=== PATIENT | female | born 1985 | race Caucasian/White ===

== ENCOUNTER 2017-10-07 14:34 | Emergency (ER) | payer MEDICAID ==
[2017-10-07 14:56] VITALS: BP 113/58
[2017-10-07] MEDS ORDERED: BUFFERED LIDOCAINE 10 ML SYRINGE SUBQ STA (15:01)
--- NOTE | 2017-10-07 15:03 | ED Physician Documentation ---
PD HPI UPPER EXT INJURY - Stated complaint Stated Complaint: LEFT FINGER SWELLING-SHOOTING PX INTO ARM - Chief complaint Chief Complaint: Ext Problem - History obtained from History obtained from: Patient - History of Present Illness Location: Other ( woman with 3 days of increasing pain emanating from the right middle finger and now radiating up the arm. No fevers.) Review of Systems Constitutional: denies: Fever, Chills GI: reports: Reviewed and negative Skin: reports: Reviewed and negative PD PAST MEDICAL HISTORY - Past Medical History Past Medical History: No - Present Medications Home Medications: Ambulatory Orders Medication Instructions Recorded Confirmed Albuterol Sulfate [Proair Hfa 1 - 2 puffs IN Q4H PRN 10/07/17 10/07/17 Inhaler] Amox/Clav 875/125 [Augmentin] 1 each PO Q12H #14 tablet 10/07/17 - Allergies Allergies/Adverse Reactions: Allergies Allergy/AdvReac Type Severity Reaction Status Date / Time No Known Drug Allergies Allergy Verified 10/07/17 14:56 PD ED PE NORMAL - Vitals Vital signs reviewed: Yes - General General: Alert and oriented X 3, No acute distress - Extremities Extremities: Other (On the radial side of the nail of the left third finger there is a small paronychia with tenderness of that digit, some swelling but she is able to extend it all the way and there is no tenderness over the flexor tendon sheath in the palm.) - Neuro Neuro: Alert and oriented X 3, Normal speech - Psych Psych: Normal mood, Normal affect Results - Vitals Vitals: Vital Signs - 24 hr 10/07/17 14:54 Temperature 36.5 C Heart Rate 78 Respiratory 16 Rate Blood Pressure 113/58 L O2 Saturation 98 Oxygen O2 Source Room air Procedures - General procedure General procedure: After a digital block with buffered lidocaine the paronychia was prepped with iodine and incised, purulent drainage was returned and a dressing was placed. Departure - Departure Disposition: Home, Self Care Clinical Impression: Paronychia of finger of left hand Condition: Good Record reviewed to determine appropriate education?: Yes Instructions: ED Fingernail Infec Prescriptions: Amox/Clav 875/125 [Augmentin] 1 each PO Q12H #14 tablet Comments: Call your doctor to arrange a follow-up appointment, make the next available appointment. In the interim, return anytime if worse or if new symptoms develop.
== END 2017-10-07 15:30 | disposition home or self-care (01) ==
LOC: ED 14:34
DX: O98.819 Other maternal infectious and parasitic diseases complicating pregnancy, unspecified trimester (principal); L03.012 Cellulitis of left finger
CPT/HCPCS: 10060; 99283

== ENCOUNTER 2022-12-04 21:06 | Emergency (ER) | payer MEDICAID, OTHER ==
[2022-12-04 21:36] LABS: BASOPHILS # (AUTO) 0.1 10^3/uL (0.0-0.1); BASOPHILS % (AUTO) 0.7 %; EOSINOPHILS # (AUTO) 0.3 10^3/uL (0.0-0.7); EOSINOPHILS % (AUTO) 3.6 %; HCT - HEMATOCRIT 43.2 % (37.0-47.0); HGB - HEMOGLOBIN 14.1 g/dL (12.0-16.0); LYMPHOCYTES # (AUTO) 2.5 10^3/uL (1.5-3.5); LYMPHOCYTES % (AUTO) 28.7 %; MEAN CORPUSCULAR HEMOGLOBIN 30.7 pg (27.0-31.0); MEAN CORPUSCULAR HGB CONC 32.6 g/dL (32.0-36.0); MEAN CORPUSCULAR VOLUME 93.9 fL (81.0-99.0); MEAN PLATELET VOLUME 10.2 fL (7.9-10.8); MONOCYTES # (AUTO) 0.7 10^3/uL (0.0-1.0); MONOCYTES % (AUTO) 7.6 %; NEUTROPHILS % (AUTO) 59.2 %; PLT - PLATELET COUNT 241 10^3/uL (130-450); RED CELL DISTRIBUTION WIDTH 11.9 % (12.0-15.0); WHITE BLOOD COUNT 8.5 x10^3/uL (4.8-10.8)
--- NOTE | 2022-12-04 21:41 | ED Physician Documentation ---
PD HPI CHEST PAIN - Stated complaint Stated Complaint: CHEST PX, HEADACHE - Chief complaint Chief Complaint: Cardiac - History obtained from History obtained from: Patient - Additional information Additional information: 37-year-old woman with history of anxiety, asthma presents with chest pain, intermittent over the past several months, worsening over the past 3 days, sharp, radiating to the left arm, associated with headache and dizziness. Patient also endorses acute anxiety during these episodes. Her mother reports that the patient lost the father of her children last year by suicide and she has been coping on her own while raising her kids Review of Systems Constitutional: denies: Fever Cardiac: reports: Chest pain / pressure. denies: Palpitations Respiratory: denies: Dyspnea, Cough PD PAST MEDICAL HISTORY - Present Medications Home Medications: Ambulatory Orders Medication Instructions Recorded Confirmed Albuterol Sulfate [Proair Hfa 1 - 2 puffs IN Q4H PRN 10/07/17 12/04/22 Inhaler] - Allergies Allergies/Adverse Reactions: Allergies Allergy/AdvReac Type Severity Reaction Status Date / Time No Known Drug Allergies Allergy Verified 12/04/22 21:11 PD ED PE NORMAL - Vitals Vital signs reviewed: Yes - General General: Alert and oriented X 3, No acute distress, Well developed/nourished, Other (anxious appearing) - HEENT HEENT: Atraumatic, PERRL, EOMI - Neck Neck: Supple, no meningeal sign - Cardiac Cardiac: RRR - Respiratory Respiratory: No respiratory distress, Clear bilaterally - Abdomen Abdomen: Non tender, Non distended - Derm Derm: Normal color, Warm and dry Results - Vitals Vitals: Vital Signs - 24 hr 12/04/22 12/04/22 21:11 21:57 Temperature 37.1 C Heart Rate 88 69 Respiratory 16 18 Rate Blood Pressure 108/73 102/69 O2 Saturation 100 99 Oxygen O2 Source Room air - Labs Labs: Laboratory Tests 12/04/22 12/04/22 12/04/22 21:30 21:30 21:30 WBC 8.5 RBC 4.60 Hgb 14.1 Hct 43.2 MCV 93.9 MCH 30.7 MCHC 32.6 RDW 11.9 L Plt Count 241 MPV 10.2 Neut # (Auto) 5.0 Lymph # (Auto) 2.5 Brown # (Auto) 0.7 Eos # (Auto) 0.3 Baso # (Auto) 0.1 Absolute Nucleated RBC 0.00 Nucleated RBC % 0.0 Sodium 136 Potassium 3.5 Chloride 96 L Carbon Dioxide 28 Anion Gap 12.0 BUN 16 Creatinine 0.7 Estimated GFR (MDRD) 95 Glucose 116 H Calcium 9.0 Total Bilirubin 0.5 AST 21 ALT 15 Alkaline Phosphatase 56 Troponin I High Sens < 2.3 L Total Protein 7.7 Albumin 4.0 Globulin 3.7 Albumin/Globulin Ratio 1.1 Lipase 39 PD Medical Decision Making - ED course ED course: 37-year-old woman with history of asthma presents with chest pain intermittent over the past several months, worsening recently. Her initial EKG is normal sinus rhythm without any concerning findings. Her vital signs and exam uncovered no emergent issues. Plan to obtain CBC, abdominal panel, troponin, and chest x-ray to evaluate for spontaneous pneumothorax, pneumonia, cardiac cause or other pathology. Assuming troponin is negative, patient will have a heart score of 0 and can be discharged safely to home. Plan to provide return precautions and have her follow-up with her primary care provider Departure - Departure Disposition: 01 , Self Care Clinical Impression: Chest pain, Anxiety Condition: Stable Instructions: ED Chest Pain Atypical Unkn Cause, Grief Moving Through, Grief Loss Self Help Comments: You were seen in the emergency department for evaluation of chest pain. Your exam, lab work, EKG, and chest x-ray uncovered no emergent cause for your symptoms. Please follow-up with your primary care provider and return to the emergency department for new or worsening symptoms or other concerns.
[2022-12-04 21:52] LABS: ALBUMIN/GLOBULIN RATIO 1.1 (1.0-2.2); BILIRUBIN,TOTAL 0.5 mg/dL (0.2-1.0); CREATININE 0.7 mg/dL (0.4-1.0); POTASSIUM 3.5 mmol/L (3.5-5.0); TOTAL PROTEIN 7.7 g/dL (6.7-8.2)
--- NOTE | 2022-12-04 22:36 | XRAY Report ---
PROCEDURE: Chest 1 View X-Ray INDICATIONS: Chest pain TECHNIQUE: One view of the chest was acquired. COMPARISON: None. FINDINGS: Surgical changes and devices: None. Lungs and pleura: No pleural effusions or pneumothorax. Lungs are clear. Mediastinum: Mediastinal contours appear normal. Heart size is normal. Bones and chest wall: No suspicious bony lesions. Overlying soft tissues appear unremarkable. IMPRESSION: 1. No acute cardiopulmonary disease. Reviewed by: Ignacio Andrea MD on 12/04/2022 10:35 PM [facility] [[email or web address]] Approved by: Ignacio Andrea MD on 12/04/2022 10:35 PM [facility] [[email or web address]] Station ID: [id number]
[2022-12-04 23:05] VITALS: BP 108/70
== END 2022-12-04 23:05 | disposition home or self-care (01) ==
LOC: ED 21:06
DX: R07.9 Chest pain, unspecified (principal); F41.9 Anxiety disorder, unspecified
CPT/HCPCS: 36415; 80053; 83690; 84484; 85025; 93005; 99283; 99284